=== PATIENT | female | born 1965 | race Caucasian/White ===

== ENCOUNTER 2019-11-18 08:20 | Emergency (ER) | payer OTHER ==
[~2019-11-18] VITALS: Ht 152.4 cm; Wt 63.0 kg
--- NOTE | 2019-11-18 08:56 | NUR ---
IT BUSINESS PROCESS ARCHITECT: PT TO ROOM FROM LOBBY
[2019-11-18 09:04] VITALS: BP 120/80
[2019-11-18 09:11] LABS: RAPID INFLUENZA A POSITIVE (Negative); RAPID INFLUENZA B Negative (Negative)
--- NOTE | 2019-11-18 10:08 | NUR ---
Patient given discharge instructions and they have confirmed that they understand the instructions. Patient ambulatory with steady gait.
== END 2019-11-18 10:09 | disposition home or self-care (01) ==
LOC: ED 09:54
DX: J10.1 Influenza due to other identified influenza virus with other respiratory manifestations (principal)
CPT/HCPCS: 71046; 87400; 99284